=== PATIENT | female | born 1950 | race Hispanic/Latino ===

== ENCOUNTER → 2018-06-18 | Outpatient (CLI) | payer OTHER ==
[~2018-06-18] MED LIST: GABA-531 PO; GLIM2TAB3 PO; LISI-613 PO; SIMV10TA6 PO
== END | disposition home or self-care (01) ==
LOC: RAH 10:46
PROVIDERS: ATTEND Internal Medicine Endocrinology, Diabetes & Metabolism
DX: E03.9 Hypothyroidism, unspecified (principal); Z85.850 Personal history of malignant neoplasm of thyroid
CPT/HCPCS: 76536

== ENCOUNTER → 2019-04-05 | Outpatient (CLI) | payer OTHER ==
[~2019-04-05] MED LIST changes: -GLIM2TAB3 PO; +GLIM2TAB30 PO; -SIMV10TA6 PO; +SIMV10TA97 PO
== END | disposition home or self-care (01) ==
LOC: RAH 12:42
PROVIDERS: ATTEND Internal Medicine Endocrinology, Diabetes & Metabolism
DX: E04.1 Nontoxic single thyroid nodule (principal); E89.0 Postprocedural hypothyroidism
CPT/HCPCS: 76536

== ENCOUNTER → 2019-07-19 | Outpatient (CLI) | payer OTHER | END | disposition home or self-care (01) | LOC: SHCH 09:58 | PROVIDERS: ATTEND Internal Medicine Cardiovascular Disease | DX: R01.1 Cardiac murmur, unspecified (principal) | CPT/HCPCS: 93306 ==

== ENCOUNTER → 2019-07-21 | Outpatient (CLI) | payer OTHER | END | disposition home or self-care (01) | LOC: SHCH 09:00 | PROVIDERS: ATTEND Internal Medicine Cardiovascular Disease | DX: R09.89 Other specified symptoms and signs involving the circulatory and respiratory systems (principal) | CPT/HCPCS: 93880 ==

== ENCOUNTER 2021-11-07 20:44 | Emergency (ER) | payer OTHER ==
[~2021-11-07] VITALS: Ht 154.9 cm; Wt 75.7 kg
[~2021-11-07 20:44] MED LIST changes: -LISI-613 PO; +LISI20TA24 PO
[2021-11-07] MEDS ORDERED: ONDANSETRON 4MG INJ IVP ONE (22:00)
[2021-11-07] MEDS ORDERED: KETOROLAC 30MG VIAL (30MG/ML) IVP ONE (22:00)
[2021-11-07 22:03] LABS: BASOPHILS % (AUTO) 0.4 % (0.0-5.0); EOSINOPHILS % (AUTO) 0.5 % (0.0-8.0); HEMATOCRIT 40.4 % (36-48); LYMPHOCYTES % (AUTO) 6.8 % (21.0-51.0); MEAN CORPUSCULAR HEMOGLOBIN 30.3 pg (27.0-33.0); MEAN CORPUSCULAR HGB CONC 33.4 g/dL (32.0-36.0); MEAN CORPUSCULAR VOLUME 90.6 fL (79-99); MONOCYTES % (AUTO) 5.2 % (3.0-13.0); NEUTROPHILS % (AUTO) 86.6 % (40.0-77.0); PLATELET COUNT (AUTO) 193 K/uL (130-400); RED BLOOD CELL COUNT(AUTO) 4.46 MIL/uL (4.00-5.50); RED CELL DISTRIBUTION WIDTH 12.3 % (11.0-15.5); WHITE BLOOD COUNT (AUTO) 16.1 K/uL (4.8-10.8)
[2021-11-07 22:13] LABS: POTASSIUM 4.2 mmol/L (3.5-5.1)
[2021-11-07 22:17] LABS: APPEARANCE,URINE CLEAR (CLEAR); BILIRUBIN,URINE NEGATIVE (NEGATIVE); COLOR,URINE YELLOW (YELLOW); GLUCOSE, URINE (UA) NEGATIVE (NEGATIVE); KETONES,URINE 5 mg/dL (NEGATIVE); LEUKOCYTE ESTERASE ,URINE MODERATE (NEGATIVE); NITRATE,URINE NEGATIVE (NEGATIVE); OCCULT BLOOD,URINE NEGATIVE (NEGATIVE); PROTEIN,URINE NEGATIVE (NEGATIVE); UROBILINOGEN,URINE 0.2 mg/dL (0.2-1.0)
[2021-11-07 22:19] LABS: ALBUMIN 4.2 g/dL (3.5-5.0); TOTAL PROTEIN, SERUM 7.4 g/dL (6.0-8.3)
[2021-11-07] MEDS ORDERED: IOHEXOL 350 MG/ML 100ML INFUS..BTL IV ONE (22:23)
[2021-11-07 22:58] LABS: RBC,URINE 0-1 /HPF (0-1)
[2021-11-07 23:00] LABS: BACTERIA,URINE None Seen /HPF (None Seen); SQUAMOUS EPITHELIAL CELL,UR Few /HPF (0-2)
[2021-11-07 23:03] VITALS: BP 156/74
[2021-11-07] MEDS ORDERED: CEFTRIAXONE 1G VIAL IVP ONE (23:30)
[2021-11-07] MEDS ORDERED: DOCU-116 PO (23:59)
[2021-11-07] MEDS ORDERED: SULF1TAB42 PO (23:59)
== END 2021-11-08 00:03 | disposition home or self-care (01) ==
LOC: EDH 20:44
DX: N39.0 Urinary tract infection, site not specified (principal); K59.00 Constipation, unspecified; E11.9 Type 2 diabetes mellitus without complications; E78.00 Pure hypercholesterolemia, unspecified; I10 Essential (primary) hypertension; Z79.899 Other long term (current) drug therapy
CPT/HCPCS: 99285; 74177; 96374; 96375; 80053; 83690; 85025; 87088; 81001; 36415; J0696; J2405; J1885; Q9967

== ENCOUNTER 2022-09-02 11:07 | Observation (INO) | payer OTHER ==
[~2022-09-02] VITALS: Ht 154.9 cm; Wt 71.0 kg
[~2022-09-02 11:07] MED LIST changes: +DOCU-116 PO; +SULF1TAB42 PO
[2022-09-02] MEDS ORDERED: OCTYL 2-CYANOACRYLATE 1 EACH TP ONE (11:26)
[2022-09-02 11:42] LABS: BASOPHILS % (AUTO) 0.3 % (0.0-5.0); EOSINOPHILS % (AUTO) 0.3 % (0.0-8.0); HEMATOCRIT 34.1 % (36-48); LYMPHOCYTES % (AUTO) 10.7 % (21.0-51.0); MEAN CORPUSCULAR VOLUME 91.2 fL (79-99); MONOCYTES % (AUTO) 6.2 % (3.0-13.0); NEUTROPHILS % (AUTO) 80.9 % (40.0-77.0); PLATELET COUNT (AUTO) 142 K/uL (130-400); RED BLOOD CELL COUNT(AUTO) 3.74 MIL/uL (4.00-5.50); RED CELL DISTRIBUTION WIDTH 15.1 % (11.0-15.5); WHITE BLOOD COUNT (AUTO) 10.9 K/uL (4.8-10.8)
[2022-09-02 12:00] LABS: ALBUMIN 3.3 g/dL (3.5-5.0); CREATININE 1.9 mg/dL (0.5-1.5); TOTAL PROTEIN, SERUM 5.7 g/dL (6.0-8.3)
[2022-09-02 12:01] LABS: POTASSIUM 6.4 mmol/L (3.5-5.1)
[2022-09-02] MEDS ORDERED: ALBUTEROL 0.083% 2.5 MG/3 ML INH IH ONE (12:15)
[2022-09-02] MEDS ORDERED: DEXTROSE 50%-WATER 25 GM/50 ML VIAL IV ONE (12:30)
[2022-09-02] MEDS ORDERED: SODIUM ZIRCONIUM CYCLOSILICATE 5 GM POWD.PACK PO SCH (12:30)
[2022-09-02] MEDS ORDERED: INSULIN HUMULIN R 100 UNIT/ML 3ML IV ONE (12:30)
[2022-09-02] MEDS ORDERED: SODIUM BICARB 8.4% 50ML SYRINGE IVP ONE (12:30)
[2022-09-02] MEDS ORDERED: CALCIUM GLUC 1GM 1 GM in 0.9%NACL 100ML 100 ML IV ONE (12:30)
[2022-09-02] MEDS: ALBUTEROL 0.083% 2.5 MG/3 ML INH IH SCH (12:35)
[2022-09-02] MEDS ORDERED: DEXTROSE 50%-WATER 50 ML DISP.SYRIN IV ONE ×2 (12:38→13:30)
[2022-09-02] MEDS ORDERED: GUAIFENESIN-DM 200/20 MG 10 ML PO PRN (16:00)
[2022-09-02] MEDS ORDERED: LACTULOSE 20 GM/30 ML UDCUP PO PRN (16:00)
[2022-09-02] MEDS ORDERED: ZOLPIDEM TARTRATE 5 MG TAB PO PRN (16:00)
[2022-09-02] MEDS ORDERED: HYDROCODONE/ACETAMINOPHEN 7.5/325 MG TAB PO PRN (16:00)
[2022-09-02] MEDS ORDERED: NITROGLYCERIN 0.4 MG SL TAB SL PRN (16:00)
[2022-09-02] MEDS ORDERED: OXYCODONE HCL 5 MG TAB PO PRN (16:00)
[2022-09-02] MEDS ORDERED: ACETAMINOPHEN 325 MG TAB PO PRN (16:00)
[2022-09-02] MEDS ORDERED: ONDANSETRON 4MG INJ IV PRN (16:00)
[2022-09-02] MEDS ORDERED: MAG/ALUM/SIMETH 30 ML UDCUP PO PRN (16:00)
[2022-09-02] MEDS: LACTATED RINGERS 1000ML 1,000 ML IV SCH (16:21)
[2022-09-02] MEDS ORDERED: FAMOTIDINE 20MG TAB PO SCH (21:00)
[2022-09-02] MEDS: FAMOTIDINE 20MG VIAL IV SCH (22:47)
[2022-09-02] MEDS: ATORVASTATIN 20 MG TABLET PO SCH (22:47)
[2022-09-02] MEDS: HEPARIN 5,000 UNIT VIAL SQ SCH (22:47)
[2022-09-02] MEDS ORDERED: LENVIMA (23:26)
[2022-09-02] MEDS ORDERED: AMLO-258 PO (23:32)
[2022-09-02] MEDS ORDERED: LINA290C PO (23:32)
[2022-09-02] MEDS ORDERED: [UNRECOGNIZED DRUG - CODE] PO (23:32)
[2022-09-02] MEDS ORDERED: HYDR12.54 PO (23:32)
[2022-09-02] MEDS ORDERED: HYDR-4153 PO (23:32)
[2022-09-02] MEDS ORDERED: MECO10005 PO (23:32)
[2022-09-02] MEDS ORDERED: ATOR40TA71 PO (23:35)
[2022-09-02] MEDS ORDERED: EMPA10TA PO (23:35)
[2022-09-02] MEDS ORDERED: CALC0.253 PO (23:35)
[2022-09-02] MEDS ORDERED: LEVO88CA4 PO (23:36)
[2022-09-03] VITALS (12 sets, daily range): BP systolic 135–181; BP diastolic 54–93
[2022-09-03 02:01] LABS: APPEARANCE,URINE CLEAR (CLEAR); BILIRUBIN,URINE NEGATIVE (NEGATIVE); COLOR,URINE LIGHT-YELLOW (YELLOW); GLUCOSE, URINE (UA) NEGATIVE (NEGATIVE); KETONES,URINE NEGATIVE (NEGATIVE); LEUKOCYTE ESTERASE ,URINE 75 Leu/uL (NEGATIVE); NITRATE,URINE NEGATIVE (NEGATIVE); OCCULT BLOOD,URINE SMALL (NEGATIVE); PROTEIN,URINE 300 mg/dL (NEGATIVE); UROBILINOGEN,URINE 0.2 mg/dL (0.2-1.0)
[2022-09-03 02:08] LABS: OTHER CASTS, URINE 1 /LPF (None Seen); SQUAMOUS EPITHELIAL CELL,UR RARE /HPF (0-2); WBC,URINE 26-50 /HPF (0-1)
[2022-09-03] MEDS: LACTATED RINGERS 1000ML 1,000 ML IV SCH ×3 (02:09→22:00)
[2022-09-03] MEDS: HYDRALAZINE 20MG/ML VIAL IV PRN ×3 (03:48→23:55)
[2022-09-03] MEDS: CEFTRIAXONE 2GM VIAL IVPB SCH (05:10)
[2022-09-03 06:47] LABS: BASOPHILS % (AUTO) 0.7 % (0.0-5.0); EOSINOPHILS % (AUTO) 3.3 % (0.0-8.0); HEMATOCRIT 33.3 % (36-48); LYMPHOCYTES % (AUTO) 24.5 % (21.0-51.0); MEAN CORPUSCULAR HEMOGLOBIN 30.8 pg (27.0-33.0); MEAN CORPUSCULAR HGB CONC 33.3 g/dL (32.0-36.0); MEAN CORPUSCULAR VOLUME 92.5 fL (79-99); MONOCYTES % (AUTO) 8.3 % (3.0-13.0); NEUTROPHILS % (AUTO) 62.1 % (40.0-77.0); PLATELET COUNT (AUTO) 138 K/uL (130-400); RED CELL DISTRIBUTION WIDTH 15.1 % (11.0-15.5)
[2022-09-03 06:52] LABS: HEMOGLOBIN A1C 5.6 % (4.0-6.0)
[2022-09-03 06:54] LABS: INR 0.94 (0.85-1.15)
[2022-09-03 07:16] LABS: ALBUMIN 2.7 g/dL (3.5-5.0); CREATININE 1.5 mg/dL (0.5-1.5); MAGNESIUM 1.4 mg/dL (1.80-2.40); POTASSIUM 4.7 mmol/L (3.5-5.1); THYROID STIMULATING HORMONE 3.24 uIU/mL (0.36-3.74); TOTAL PROTEIN, SERUM 4.9 g/dL (6.0-8.3)
[2022-09-03] MEDS ORDERED: MAGNESIUM 2GM PREMIX 50ML 50 ML IV PRN (08:00)
[2022-09-03] MEDS: ASPIRIN 81MG CHEW TAB PO SCH (09:16)
[2022-09-03] MEDS: HEPARIN 5,000 UNIT VIAL SQ SCH ×3 (09:18→22:04)
[2022-09-03] MEDS: ALBUTEROL 0.083% 2.5 MG/3 ML INH IH SCH (12:30)
[2022-09-03] MEDS: CARBIDOPA-LEVODOPA 25-100 TAB PO SCH (21:00)
[2022-09-03] MEDS: ATORVASTATIN 20 MG TABLET PO SCH (22:03)
[2022-09-04] VITALS (9 sets, daily range): BP systolic 118–185; BP diastolic 54–78
[2022-09-04] MEDS ORDERED: ASPIRIN 325MG TAB PO ONE (02:30)
[2022-09-04] MEDS: CEFTRIAXONE 2GM VIAL IVPB SCH (05:32)
[2022-09-04] MEDS: CARBIDOPA-LEVODOPA 25-100 TAB PO SCH ×3 (09:00→20:30)
[2022-09-04] MEDS: HEPARIN 5,000 UNIT VIAL SQ SCH ×3 (09:31→20:31)
[2022-09-04] MEDS: ASPIRIN 81MG CHEW TAB PO SCH (09:32)
[2022-09-04] MEDS: LACTATED RINGERS 1000ML 1,000 ML IV SCH ×2 (09:33→18:00)
[2022-09-04] MEDS: ALBUTEROL 0.083% 2.5 MG/3 ML INH IH SCH (12:30)
[2022-09-04] MEDS ORDERED: ASPI-1005 PO (13:30)
[2022-09-04] MEDS ORDERED: ATOR20TA65 PO (13:30)
[2022-09-04] MEDS ORDERED: CARB1TAB35 PO (13:30)
[2022-09-04] MEDS ORDERED: AMOX1TAB16 PO (13:35)
[2022-09-04] MEDS: HYDRALAZINE 25MG TABLET PO SCH ×2 (17:24→20:30)
[2022-09-04] MEDS: FAMOTIDINE 20MG VIAL IV SCH (20:30)
[2022-09-04] MEDS: ATORVASTATIN 20 MG TABLET PO SCH (20:30)
[2022-09-05 03:35] VITALS: BP 139/59
[2022-09-05] MEDS: LACTATED RINGERS 1000ML 1,000 ML IV SCH ×2 (04:00→14:56)
[2022-09-05] MEDS: CEFTRIAXONE 2GM VIAL IVPB SCH (05:05)
[2022-09-05 08:00] VITALS: BP 174/63
[2022-09-05] MEDS: CARBIDOPA-LEVODOPA 25-100 TAB PO SCH ×4 (08:19→15:10)
[2022-09-05] MEDS: HYDRALAZINE 25MG TABLET PO SCH (08:20)
[2022-09-05] MEDS: ASPIRIN 81MG CHEW TAB PO SCH (08:20)
[2022-09-05] MEDS: HEPARIN 5,000 UNIT VIAL SQ SCH ×2 (08:21→15:01)
[2022-09-05] MEDS ORDERED: AMLODIPINE 5 MG TAB PO SCH (09:00)
[2022-09-05 10:35] VITALS: BP 147/66
[2022-09-05 11:52] VITALS: BP 155/49
[2022-09-05 16:00] VITALS: BP 119/53
== END 2022-09-05 17:45 | disposition home or self-care (01) ==
LOC: EDH 11:07 → EDHIP 15:57 → 3DH 09-03 01:33
PROVIDERS: ADMIT Internal Medicine Critical Care Medicine; ATTEND Internal Medicine Critical Care Medicine
DX: N17.9 Acute kidney failure, unspecified (principal); N30.00 Acute cystitis without hematuria; E87.5 Hyperkalemia; S09.90XA Unspecified injury of head, initial encounter; S51.012A Laceration without foreign body of left elbow, initial encounter; R29.6 Repeated falls; I11.0 Hypertensive heart disease with heart failure; I50.9 Heart failure, unspecified; I21.A1 Myocardial infarction type 2; A01.0 Typhoid fever; I25.2 Old myocardial infarction; I21.4 Non-ST elevation (NSTEMI) myocardial infarction; I34.0 Nonrheumatic mitral (valve) insufficiency; E11.65 Type 2 diabetes mellitus with hyperglycemia; E66.9 Obesity, unspecified; E78.5 Hyperlipidemia, unspecified; E89.0 Postprocedural hypothyroidism; G20 Parkinson's disease; E11.40 Type 2 diabetes mellitus with diabetic neuropathy, unspecified; G25.0 Essential tremor; M79.604 Pain in right leg; M79.605 Pain in left leg; Z85.850 Personal history of malignant neoplasm of thyroid; Z79.899 Other long term (current) drug therapy; Z98.890 Other specified postprocedural states; Z68.29 Body mass index [BMI] 29.0-29.9, adult; W18.30XA Fall on same level, unspecified, initial encounter; Y92.89 Other specified places as the place of occurrence of the external cause; Y93.89 Activity, other specified; Y99.8 Other external cause status
CPT/HCPCS: 96361 ×8; 96365; 96375 ×2; 99285; 84484 ×6; 84132; 80053 ×2; 85025 ×2; 36415 ×3; 71045; 73562; 70450; 93306; 93356; 93005 ×2; 94640; 96376 ×2; 96366 ×3; 96367; 83036; 84443; 82550; 83735 ×3; 85610; 87088; 83605; 81001; 93880; 70544; 97161; 97039 ×2; 97116 ×2; 84145; 85378; 78582; 93970; G0378 ×71; J3490 ×2; J7070 ×2; J0610; J1644 ×9; J1815; J3475; J0696 ×3; J0360 ×3; A9540; A9558

== ENCOUNTER → 2023-11-04 | Outpatient (CLI) | payer OTHER ==
[~2023-11-04] MED LIST changes: +AMLO-258 PO; +AMOX1TAB16 PO; +ASPI-1005 PO; +ATOR20TA65 PO; +ATOR40TA71 PO; +CALC0.253 PO; +CARB1TAB35 PO; +EMPA10TA PO; -GABA-531 PO; +HYDR12.54 PO; +HYDR25TA67 PO; +LENVIMA; +LEVO88CA4 PO; +LINA290C PO; -LISI20TA24 PO; +MECO10005 PO; -SIMV10TA97 PO; -SULF1TAB42 PO; +[UNRECOGNIZED DRUG - CODE] PO
[2023-11-04 12:30] LABS: ALBUMIN 3.9 g/dL (3.5-5.0); BILIRUBIN,TOTAL 0.3 mg/dL (0.2-1.0); CREATININE 1.3 mg/dL (0.5-1.0); POTASSIUM 4.3 mmol/L (3.5-5.1)
== END | disposition home or self-care (01) ==
LOC: LAB 10:47
PROVIDERS: ATTEND Internal Medicine Cardiovascular Disease
DX: I10 Essential (primary) hypertension (principal)
CPT/HCPCS: 36415; 80053

== ENCOUNTER → 2024-03-21 | Outpatient (CLI) | payer OTHER ==
[~2024-03-21] MED LIST changes: -AMLO-258 PO; +AMLO2.5T4 PO; -AMOX1TAB16 PO; +ATOR10 PO; -ATOR20TA65 PO; +ATOR40TA69 PO; -ATOR40TA71 PO; +CARB100T61 PO; -CARB1TAB35 PO; -DOCU-116 PO; -EMPA10TA PO; +FERR-72 PO; +FURO20TA4 PO; +GLIM1TAB56 PO; -GLIM2TAB30 PO; -HYDR12.54 PO; -HYDR25TA67 PO; +ISOS30TA92 PO; -LENVIMA; +LEVO112T7 PO; -LEVO88CA4 PO; -LINA290C PO; +LISI10TA24 PO; +METO-408 PO; -[UNRECOGNIZED DRUG - CODE] PO
--- NOTE | 2024-03-24 02:27 | HMCSR ---
APPROVED REPORT EXAM: Two-dimensional and M-mode echocardiogram with Doppler and color Doppler. 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 2D Dimensions RVDd2.5 cmLVEF(%)62.8 (>50%)LVED Vol(simp.)109.0 mL IVSd0.9 (0.7-1.1cm)FS(%)34 %LVES Vol(simp.)51.0 mL LVDd5.2 (3.8-5.6cm)Ao Root(2D)3.2 (2.0-3.7cm)LVEF(%, simp.)53 % PWd0.9 (0.7-1.1cm)LVOT diam2.0 (1.8-2.4cm)LA ESV INDEX (BP)32.21 mL/m2 LVDs3.4 (2.5-4.0cm)IVC diam1.3 cm Aortic Valve AoV Vmax1.8 m/Trey Peak GR12.5 mmHgLVOT Vmax1.1 m/s AoV VTI0.4 mAo Mean GR6.6 mmHgLVOT VTI0.29 m JOSHUA (VMAX)2.1 cm2AVA (VTI) 2.1 cm2 Mitral Valve MV E Vmax56.1 cm/sDECEL Peog552 ms MV A Vmax87.6 cm/sP 1/2 T139 ms E/A ratio0.6MVA (PHT)1.6 cm2 MR Max PG113 mmHg TDI E/E' Jjkzxo10.6E/E' Lateral5.3 Pulmonary Valve PV Vmax1.2 m/sPV VTI0.29 mPV Mean GR3 mmHg PV Peak GR6.1 mmHgPI End Liliana. Garcia 1.0 cm/s Tricuspid Valve TR Vmax2.5 m/sRAP (EST) 3 ejVuLILS01.8 mmHg TR Peak GR24.8 mmHg Left Ventricle The left ventricle is normal in size. There is paradoxical septal wall motion noted. The other jimenez are grossly normal in function. Mild concentric left ventricular hypertrophy. Left ventricular systol ic function is low-normal, estimated LVEF is 50-55%. Grade 1 diastolic dysfunction Right Ventricle The right ventricle is normal size. Right ventricular systolic function is grossly normal. Atria The left atrium size is normal. The right atrium size is normal. Aortic Valve Aortic valve is trileaflet. The leaflets are mildly thickened and calcified. Trace aortic regurgitati on. There is no aortic valvular stenosis. Mitral Valve Mild mitral annular calcification is noted. The leaflets are mildly thickened and calcified. Trace mi tral regurgitation. There is no mitral valve stenosis. Tricuspid Valve The tricuspid valve is normal in structure and function. Mild tricuspid regurgitation. RVSP is 25 mmH g. Pulmonic Valve Pulmonic valve is not well visualized. Great Vessels The aortic root is normal in size. The IVC is normal in size and collapses >50% with inspiration. Pericardium No pericardial effusion. Conclusion The cardiac chambers are normal in size. Mild concentric left ventricular hypertrophy. There is paradoxical septal wall motion noted. The other jimenez are grossly normal in function. Left ventricular systolic function is low-normal, estimated LVEF is 50-55%. Grade 1 diastolic dysfunction Trace aortic regurgitation. Trace mitral regurgitation. Mild tricuspid regurgitation. PASP is 28 mmHg. No pericardial effusion.
== END | disposition home or self-care (01) ==
LOC: SHCH 15:39
PROVIDERS: ATTEND Internal Medicine Cardiovascular Disease
DX: I08.3 Combined rheumatic disorders of mitral, aortic and tricuspid valves (principal); I25.10 Atherosclerotic heart disease of native coronary artery without angina pectoris
CPT/HCPCS: 93306